=== PATIENT | female | born 1995 | race Caucasian/White ===

== ENCOUNTER 2019-04-19 05:35 | Inpatient (IN) | payer SELFPAY ==
[2019-04-19] VITALS (14 sets, daily range): BP systolic 106–127; BP diastolic 55–79
[~2019-04-19] VITALS: Ht 177.8 cm; Wt 93.4 kg
[2019-04-19] MEDS ORDERED: OXYTOCIN/NORMAL SALINE 500 ML IV ONE (05:52)
[2019-04-19] MEDS ORDERED: D5 LR IV SOLUTION 1,000 ML IV SCH (06:11)
[2019-04-19] MEDS ORDERED: MINERAL OIL CONCENTRATE 99.9% 15 ML UDC TOP PRN (06:15)
[2019-04-19 06:22] LABS: BASOPHILS % (AUTO) 0 % (0-10); EOSINOPHILS # (AUTO) 0.1 10^3/uL (0.0-0.3); EOSINOPHILS % (AUTO) 1 % (0-10); HEMATOCRIT 33 % (35-52); HEMOGLOBIN 10.1 G/DL (11.5-16.0); LYMPHOCYTES # (AUTO) 1.9 X 10^3 (1.0-4.0); LYMPHOCYTES % (AUTO) 16 % (12-44); MEAN CORPUSCULAR HEMOGLOBIN 25 PG (25-34); MEAN CORPUSCULAR HGB CONC 31 G/DL (32-36); MEAN CORPUSCULAR VOLUME 80 FL (80-99); MEAN PLATELET VOLUME 10.6 FL (7.4-10.4); MONOCYTES % (AUTO) 9 % (0-12); NEUTROPHILS # (AUTO) 8.6 X 10^3 (1.8-7.8); NEUTROPHILS % (AUTO) 75 % (42-75); PLATELET COUNT 299 10^3/uL (130-400); RED CELL DISTRIBUTION WIDTH 17.9 % (10.0-14.5); WHITE BLOOD COUNT 11.6 10^3/uL (4.3-11.0)
[2019-04-19] MEDS: OXYTOCIN/NORMAL SALINE 500 ML IV SCH ×2 (06:31→07:25)
[2019-04-19] MEDS ORDERED: HYDROcodone/APAP 5 MG/325 MG (LORTAB) TAB PO PRN (07:00)
[2019-04-19] MEDS ORDERED: TETANUS,DIPTH,PERTUSS P/F (BOOSTRIX) 0.5 ML VIAL IM ONE (07:00)
[2019-04-19] MEDS ORDERED: MEASLES,MUMPS,RUBELLA 1 EA INJ SQ ONE (07:00)
[2019-04-19] MEDS ORDERED: BENZOCAINE/MENTHOL (DERMOPLAST) 56 ML CAN TP PRN (07:00)
[2019-04-19] MEDS ORDERED: WITCH HAZEL(TUCKS) 40 EA JAR TOP PRN (07:00)
--- NOTE | 2019-04-19 07:17 | OB Labor & Delivery Record ---
L&D History Date of Service Date of Service: Apr 19, 2019 History Expected Date of Delivery: Apr 19, 2019 Gestational Age in Weeks: 39 Complications Unsure of the extent of care, patient presented complete and 0 station. Patient has had some care with Dr. Sparks Operative Indications (Cesarea: N/A-Vaginal Delivery Intrapartal Events: None L&D Stage1 Stage One Onset of Labor - Date: Apr 19, 2019 Monitors and Tracing [employer] Variability: Average (6-10) Short Term Variability: Present Rupture of Membranes Spontaneous Ruture of Membrane: Yes Amniotic Membrane Fluid Desc.: Port Wine Vaginal Bleeding Description: Normal Show Progress/Notes Patient without any pain control upon my arrival, requesting to push. Dr. Sparks unable to make it from [facility] L&D Stage2 Stage Two Stage II Date: Apr 19, 2019 Monitors and Tracing Monitor Mode: External Monitor Accelerations: Uniform Monitor Decelerations: Variable [employer] Variability: Moderate (11-25) Short Term Variability: Present Position: Right Occiput Anterior Cord Descript/Complications Cord Vessel Description: 3 Vessels Delivery Type Infant Delivery Method: Spontaneous Vaginal Anterior Shoulder: Right Episiotomy/Perineal Laceration Laceraction(s)/Extensions: Yes Episiotomy Description: Perineal Extension/lac Degree (describe repair) perineal laceration 3-0 vicryl suture used to repair laceration Condition of Delivery 1 minute Comment: 8 5 minute Comment: 8 Notes live female infant, weight pending. Condition of Infant Condition of : Living Exam: No Observed Abnormalities Resuscitation Resuscitation: Oxygen Blowby L&D Stage3 Stage Three Stage III Date: Apr 19, 2019 Pictocin Pitocin Administration Comment: 30 mu wide open at delivery of placenta Placenta Delivery Placenta Delivery: Spontaneous Delivery Summary Summary Estimated blood loss (mL): 350 Attending at delivery: Yony Robertson DO Condition of Delivery Examined: Cervix Examined, Uterus Explored Post Hemorrhage: No Condition of Mother stable Condition of Infant (s) stable YONY ROBERTSON DO Apr 19, 2019 07:17 POS
--- NOTE | 2019-04-19 07:21 | History & Physical-OB ---
OB - Chief Complaint & HPI Date/Time Date of Admission: Date of Admission: Apr 19, 2019 at 05:50 Date seen by a Provider: Apr 19, 2019 Time Seen by a Provider: 06:00 Chief Complaint/History OB-Reason for Admission/Chief: Onset of Labor Hx : 2 Hx Para: 1 Expected Date of Delivery: Apr 19, 2019 Gestational Age in Weeks: 39 Admission Nurse Assessment Rev: Yes Other Patient presented to ER complete and -1 sent to l and d where I was notified to present for eminent delivery as patients provider, Dr. Sparks, was too far out to make it. Allergies and Home Medications Allergies Coded Allergies: No Known Drug Allergies (Unverified , 04/19/19) Patient Home Medication List Home Medication List Reviewed: Yes OB - History Hx of Present Care: No Other Concerns: I am unsure of the extent of patients care as I have no records, however she does claim seeing Dr. Sparks in [facility] Patient Past Medical History n/a OB - Admission Exam Physical Exam HEENT: NCAT Heart: Rhythm Normal Lungs: Clear Abdomen: Gravid Extremities: Normal Reflexes: Normal Cervical Dilatation: 10cm Effacement: 100% Station: 0 Membranes: Ruptured Amniotic Fluid: Other Heart Rate: 130's Accelerations: Accelerations Present Decelerations: Variable Decelerations Short Term Variability: Present Manager Contact Variability: Average (6-25) Contractions on Admission: < 5 Minutes Apart Intensity: Firm Labs Laboratory Tests Test 04/19/19 05:55 Range/Units White Blood Count 11.6 H 4.3-11.0 10^3/uL Red Blood Count 4.08 L 4.35-5.85 10^6/uL Hemoglobin 10.1 L 11.5-16.0 G/DL Hematocrit 33 L 35-52 % Mean Corpuscular Volume 80 80-99 FL Mean Corpuscular Hemoglobin 25 25-34 PG Mean Corpuscular Hemoglobin Concent 31 L 32-36 G/DL Red Cell Distribution Width 17.9 H 10.0-14.5 % Platelet Count 299 130-400 10^3/uL Mean Platelet Volume 10.6 H 7.4-10.4 FL Neutrophils (%) (Auto) 75 42-75 % Lymphocytes (%) (Auto) 16 12-44 % Monocytes (%) (Auto) 9 0-12 % Eosinophils (%) (Auto) 1 0-10 % Basophils (%) (Auto) 0 0-10 % Neutrophils # (Auto) 8.6 H 1.8-7.8 X 10^3 Lymphocytes # (Auto) 1.9 1.0-4.0 X 10^3 Monocytes # (Auto) 1.0 0.0-1.0 X 10^3 Eosinophils # (Auto) 0.1 0.0-0.3 10^3/uL Basophils # (Auto) 0.0 0.0-0.1 10^3/uL OB - Assessment/Plan/Diagnosis Assessment Assessment: active labor Admission Dx 23 yo @ estimate 39 weeks based on patients history alone GBS unknown Port wine stained fluid consistent with suspected chronic abruption Eminent delivery Limited care Admission Status: Inpatient Order (span 2 midnights) Reason for Inpatient Admission: Term labor Limited care Plan Plan: Expectant Management ERIKA ROBERTSON DO Apr 19, 2019 07:21 POS
--- NOTE | 2019-04-19 07:22 | Discharge Inst-Women's Service ---
Discharge Inst-Women's Serv Depart Medication/Instructions New, Converted or Re-Newed RX: RX on Chart Final Diagnosis PPD 1 NVD Problems Reviewed?: Yes Consults/Follow Up Additional Follow Up: Yes Orders/Referrals Dr. Sparks or Gabriela in 6 weeks Activity Activity: Activity as Tolerated Driving Instructions: No Driving for 1 Week NO SMOKING: NO SMOKING Nothing Inside Vagina: No Douching, No [place], No Tampons Diet Discharge Diet: No Restrictions Symptoms to Report to : Bleeding Excessive, Pain Increased, Fever Over 101 Degrees F, Vaginal Bleeding Increase, Questions/Concerns For Any Problems or Questions: Contact Your Physician ERIKA ROBERTSON DO Apr 19, 2019 07:22 POS
--- NOTE | 2019-04-19 07:29 | Progress Note ---
Standard Progress Note Progress Notes/Assess & Plan Date Seen by a Provider: Apr 19, 2019 Time Seen by a Provider: 07:00 Progress/Assessment & Plan Ms. Tucker arrived at the hospital at 9 cm. She was subsequently delivered by Dr. Ochoa without complications When I saw Ms. Tucker she was without complaint, doing well. Assessment: Day #0 Normal Spontaneous Vaginal Delivery ( Plan: Pain management and care. I will discharge her tomorrow as long as she continues to be stable Final Diagnosis Intrauterine at 39 1/7 weeks0--delivered ELIDA DONOVAN DO Apr 19, 2019 07:29 POS
[2019-04-19] MEDS ORDERED: DOCU100C37 PO (07:32)
[2019-04-19] MEDS ORDERED: ACHD5005 PO (07:32)
[2019-04-19] MEDS ORDERED: IBUP-844 PO (07:32)
[2019-04-19] MEDS ORDERED: FERR325T18 PO (07:32)
[2019-04-19] MEDS ORDERED: LACTATED RINGERS 1,000 ML IV ONE (08:00)
[2019-04-19] MEDS ORDERED: METHYLERGONOVINE 0.2 MG/ML (METHERGINE) AMP ONE (08:13)
[2019-04-19] MEDS ORDERED: METHYLERGONOVINE 0.2 MG/ML (METHERGINE) AMP IM ONE (08:15)
[2019-04-19] MEDS: IBUPROFEN 600 MG (MOTRIN) TAB PO SCH ×3 (09:11→22:34)
--- NOTE | 2019-04-19 09:26 | NUR ---
REFER TO LABOR FLOW SHEET.
--- NOTE | 2019-04-19 09:30 | NUR ---
PT IN BED. INITIAL SHIFT ASSESSMENT COMPLETED; SEE INTERVENTION FOR FURTHER. S/O AT THE BEDSIDE.
--- NOTE | 2019-04-19 11:00 | NUR ---
PT JUST FINISHED . DENIES ANY NEEDS AT THIS TIME.
--- NOTE | 2019-04-19 12:20 | NUR ---
PT UP TO THE BATHROOM WITH STANDBY ASSIST. PT STEADY ON HER FEET. S/O AT THE BEDSIDE. PT DENIES ANY FURTHER NEEDS AT THIS TIME.
[2019-04-19] MEDS: PRENATAL VITAMIN 1 EA TAB PO SCH (13:05)
[2019-04-19] MEDS: DOCUSATE SODIUM 100 MG (COLACE) CAP PO SCH ×2 (13:06→22:34)
[2019-04-19] MEDS: FERROUS SULF 325 MG (IRON) TAB PO SCH (13:06)
--- NOTE | 2019-04-19 13:08 | NUR ---
PT SITTING UP ON THE SIDE OF THE BED, LUNCH @ BEDSIDE. MEDS GIVEN PO; SEE EMAR FOR FURTHER. PT VOICES THAT SHE FEELS REALLY GOOD. NO NEEDS VOICED.
[2019-04-19] MEDS ORDERED: CATHETER FLUSH 10 ML SYR IV SCH ×2 (14:00)
[2019-04-20 00:41] VITALS: BP 99/64
[2019-04-20 04:19] VITALS: BP 102/62
[2019-04-20] MEDS: IBUPROFEN 600 MG (MOTRIN) TAB PO SCH ×3 (04:19→16:00)
[2019-04-20 06:48] LABS: BASOPHILS % (AUTO) 0 % (0-10); EOSINOPHILS # (AUTO) 0.1 10^3/uL (0.0-0.3); EOSINOPHILS % (AUTO) 1 % (0-10); HEMATOCRIT 28 % (35-52); HEMOGLOBIN 8.5 G/DL (11.5-16.0); LYMPHOCYTES # (AUTO) 2.3 X 10^3 (1.0-4.0); LYMPHOCYTES % (AUTO) 23 % (12-44); MEAN CORPUSCULAR HEMOGLOBIN 25 PG (25-34); MEAN CORPUSCULAR HGB CONC 31 G/DL (32-36); MEAN CORPUSCULAR VOLUME 81 FL (80-99); MEAN PLATELET VOLUME 10.4 FL (7.4-10.4); MONOCYTES # (AUTO) 0.9 X 10^3 (0.0-1.0); MONOCYTES % (AUTO) 9 % (0-12); NEUTROPHILS # (AUTO) 6.8 X 10^3 (1.8-7.8); NEUTROPHILS % (AUTO) 68 % (42-75); PLATELET COUNT 294 10^3/uL (130-400); RED CELL DISTRIBUTION WIDTH 18.4 % (10.0-14.5)
--- NOTE | 2019-04-20 06:53 | Discharge Summary ---
Diagnosis/Chief Complaint Date of Admission Apr 19, 2019 at 05:50 Date of Discharge April 20, 2019 Discharge Date: Apr 20, 2019 Discharge Time: 08:00 Admission Diagnosis Admission Diagnosis Intrauterine at 39 1/7 weeks Discharge Diagnosis Intrauterine at 39 1/7 weeks--delivered Reason Hospital Visit Onset of labor Discharge Summary Hospital Course Was the Problem List Reviewed?: Yes Hospital Course Ms. Tucker presented to the hospital with the onset of contractions. After her initial assessment it was determined that an imminent delivery was likely. Dr. Ochoa was called and delivered a healthy viable female infant without complications. The remainder of her hospitalization was unremarkable. Her vital signs remained stable throughout her hospitalization. She will be discharged to home with instructions, prescriptions and a follow up appointment. Labs Laboratory Tests 04/19/19 05:55: White Blood Count 11.6H, Red Blood Count 4.08L, Hemoglobin 10.1L, Hematocrit 33L , Mean Corpuscular Hemoglobin Concent 31L, Red Cell Distribution Width 17.9H, Mean Platelet Volume 10.6H, Neutrophils # (Auto) 8.6H 04/20/19 06:24: Procedures None. Discharge Physical Examination Allergies: Coded Allergies: No Known Drug Allergies (Unverified , 04/19/19) Vitals & I&Os Vital Signs Date Time Temp Pulse Resp B/P (MAP) Pulse Ox O2 Delivery O2 Flow Rate FiO2 04/20/19 04:19 36.5 60 18 102/62 (75) 97 Room Air General Appearance: Alert, Oriented X3, Cooperative HEENT: Atraumatic Respiratory: Clear to Auscultation, Normal Air Movement Cardiovascular: Regular Rate, No Murmurs Abdominal: Normal Bowel Sounds, No Tenderness Extremities: No Clubbing, No Cyanosis Skin: No Rashes Neuro: Normal Gait, Normal Speech Discharge Home Medications Reviewed and agree with Discharge Medication list on patient's Discharge Instr uction sheet Instructions to Patient/Family Please see electronic discharge instructions given to patient. Clinical Quality Measures DVT/VTE Risk/Contraindication: RFS Level Per Nursing on Admit: 0=No Risk/No VTE PPX ELIDA DONOVAN DO Apr 20, 2019 06:53 POS
--- NOTE | 2019-04-20 07:00 | NUR ---
DR. DONOVAN HERE TO SEE PT.
[2019-04-20 08:00] VITALS: BP 105/59
--- NOTE | 2019-04-20 08:00 | NUR ---
A.M. ASSESSMENT COMPLETED. VSS. CARING FOR IN ROOM. GOOD INTERACTION NOTED.
--- NOTE | 2019-04-20 08:14 | Postpartum Progress Note ---
Note Note Day # 1 Subjective: Patient is without complaints. Ambulating, voiding. Tolerating a regular diet without nausea or vomiting. Normal lochia. Pain is well controlled with oral pain medications. Objective: Physical Exam: General - Alert and oriented, no apparent distress Abdomen - Soft, appropriately tender to palpation, non-distended, fundus firm at umbilicus Extremities - no edema, negative Shira's bilaterally Assessment: PPD 1 NVD Acute blood loss anemia Plan: Routine care. Encourage breast feeding. Encourage ambulation. Ferrous sulfate supplementation. Plan for discharge today Vitals - Labs Vital Signs - I&O Vital Signs Date Time Temp Pulse Resp B/P (MAP) Pulse Ox O2 Delivery O2 Flow Rate FiO2 04/20/19 04:19 36.5 60 18 102/62 (75) 97 Room Air 04/20/19 00:41 37.0 69 18 99/64 (76) 97 Room Air 04/19/19 20:00 36.6 71 18 117/65 (82) 98 Room Air 04/19/19 16:10 37.0 67 18 111/63 (79) 99 Room Air 04/19/19 12:35 37.1 83 16 107/55 (72) 97 Room Air 04/19/19 09:05 38.1 60 18 127/79 (95) Room Air 04/19/19 08:50 67 18 126/79 (95) Room Air 04/19/19 08:35 64 18 123/72 (89) Room Air 04/19/19 08:20 70 18 110/66 (81) Room Air Labs Laboratory Tests 04/20/19 06:24: White Blood Count 10.0, Red Blood Count 3.45L, Hemoglobin 8.5L, Hematocrit 28L, Mean Corpuscular Volume 81, Mean Corpuscular Hemoglobin 25, Mean Corpuscular Hemoglobin Concent 31L, Red Cell Distribution Width 18.4H, Platelet Count 294, Mean Platelet Volume 10.4, Neutrophils (%) (Auto) 68, Lymphocytes (%) (Auto) 23, Monocytes (%) (Auto) 9, Eosinophils (%) (Auto) 1, Basophils (%) (Auto) 0, Neutrophils # (Auto) 6.8, Lymphocytes # (Auto) 2.3, Monocytes # (Auto) 0.9, Eosinophils # (Auto) 0.1, Basophils # (Auto) 0.0 ERIKA ROBERTSON DO Apr 20, 2019 08:14 POS
--- NOTE | 2019-04-20 08:30 | NUR ---
PT DECLINED FLU AND TDAP VACCINES. PT DECLINED SHOWER.
[2019-04-20] MEDS: FERROUS SULF 325 MG (IRON) TAB PO SCH (10:02)
[2019-04-20] MEDS: PRENATAL VITAMIN 1 EA TAB PO SCH (10:02)
[2019-04-20] MEDS: DOCUSATE SODIUM 100 MG (COLACE) CAP PO SCH (10:03)
--- NOTE | 2019-04-20 10:30 | NUR ---
AMBULATED IN THE HALLWAY WITH S.O. AND INFANT. MOVING WELL.
--- NOTE | 2019-04-20 12:30 | NUR ---
CONTINUES TO CARE FOR IN ROOM. WITHOUT PROBLEMS. SUPPLIES GIVEN FOR [employer].
[2019-04-20 14:00] VITALS: BP 96/56
--- NOTE | 2019-04-20 14:00 | NUR ---
VSS. DENIES ANY PAIN. DENIES ANY WANTS OR NEEDS. CONTINUES TO CARE FOR INFANT IN ROOM.
--- NOTE | 2019-04-20 16:00 | NUR ---
STATES WELL. CONTINUES TO CARE FOR IN ROOM.
--- NOTE | 2019-04-20 18:45 | NUR ---
DISCHARGE INSTRUCTIONS REVIEWED WITH COPY TO PT. STATES UNDERSTANDING OF ALL INSTRUCTIONS AND NEED TO F/U SCHEDULED AND NEEDED. RXS GIVEN BUT MAY NOT GET THEM FILLED PER PT AND S.O.
[2019-04-20 19:00] VITALS: BP 96/56
--- NOTE | 2019-04-20 19:00 | NUR ---
DISMISSED FROM WS IN STABLE CONDITION. PT WILL REMAIN IN ROOM A BOARDER MOM R/T HAVING TO STAY.
--- NOTE | 2019-04-22 10:21 | Physician Query Clarification ---
PQ-Further Specificity Admission/Discharge Admission Date: Apr 19, 2019 at 05:50 Discharge Date: Apr 20, 2019 at 19:00 The medical record reflects the following clinical scenario: History/Risk Factors: , Decelerations Clinical Findings: perineal laceration Treatment: repair perineal laceration Question: Can you further specify the degree of the perineal laceration per the clinical indicators above? Please document a response in the Progress Notes or Discharge Summary. 1. 1st degree perineal laceration 2. 2nd degree perineal laceration 3. Other, with explanation of the clinical findings. 4. Clinically undetermined, no explanation for the clinical findings. PHYSICIAN RESPONSE Can you specify per above: 2 Explanation/Clinical Findings 2nd degree Please remember a lack of response to the above will prompt a phone page by CDI/Coding staff. In responding to this query, please exercise your independent professional judgment. The purpose of this communication is to more accurately reflect the complexity of your patients condition. The fact that a question is asked does not imply that any particular answer is desired or expected. Thank you for your timely response to this clarification. Requestors name: Rasheeda THIS PHYSICIAN QUERY FORM IS A PERMANENT PART OF THE MEDICAL RECORD RASHEEDA ARGUETA Apr 22, 2019 10:21 POSERIKA ROBERTSON DO Apr 22, 2019 12:48 POS
--- NOTE | 2019-04-22 10:37 | Physician Query Clarification ---
PQ-Further Specificity Admission/Discharge Admission Date: Apr 19, 2019 at 05:50 Discharge Date: Apr 20, 2019 at 19:00 The medical record reflects the following clinical scenario: History/Risk Factors: , decelerations Clinical Findings: Port wine stained fluid consistent with suspected chronic abruption Treatment: , repair perineal laceration Question: Can you confirm whether or not patient had a chronic abruption after study? No further mention of it in the record. per the clinical indicators above? Please document a response in the Progress Notes or Discharge Summary. 1. Yes, patient had chronic abruption 2. No, chronic abruption ruled out. 3. Other, with explanation of the clinical findings. 4. Clinically undetermined, no explanation for the clinical findings. PHYSICIAN RESPONSE Can you specify per above: 2 Explanation/Clinical Findings 2nd degree Please remember a lack of response to the above will prompt a phone page by CDI/Coding staff. In responding to this query, please exercise your independent professional judgment. The purpose of this communication is to more accurately reflect the complexity of your patients condition. The fact that a question is asked does not imply that any particular answer is desired or expected. Thank you for your timely response to this clarification. Requestors name: [ ] Phone # [ ] THIS PHYSICIAN QUERY FORM IS A PERMANENT PART OF THE MEDICAL RECORD RASHEEDA ARGUETA Apr 22, 2019 10:37 ERIKA HARRISON DO Apr 22, 2019 12:48 POS
== END 2019-04-20 19:00 | disposition home or self-care (01) | DRG 806 ==
LOC: LDRP 05:35 → WSo 05:35 → LDRP 05:50
PROVIDERS: ADMIT Obstetrics & Gynecology; ATTEND Obstetrics & Gynecology
PROC: 10E0XZZ Delivery of Products of Conception, External Approach (ICD-10-PCS; principal; 2019-04-19)
PROC: 0KQM0ZZ Repair Perineum Muscle, Open Approach (ICD-10-PCS; 2019-04-19)
DX: O76 Abnormality in fetal heart rate and rhythm complicating labor and delivery (principal); O70.1 Second degree perineal laceration during delivery; O90.81 Anemia of the puerperium; D62 Acute posthemorrhagic anemia; Z37.0 Single live birth; Z3A.39 39 weeks gestation of pregnancy
CPT/HCPCS: 36415; 85025; 86850; 86900; 86901; 99212

== ENCOUNTER → 2020-09-21 | Outpatient (CLI) | payer SELFPAY ==
[~2020-09-21] MED LIST: ACHD5005 PO; DOCU100C37 PO; FERR325T18 PO; IBUP-844 PO
--- NOTE | 2020-09-21 16:36 | Diagnostic Imaging Report ---
INDICATION: patient, survey. TECHNIQUE: Multiple real-time grayscale images were obtained over the gravid uterus. COMPARISON: None. FINDINGS: A single live intrauterine fetus is seen measuring 32 weeks 4 days in size by composite measurements. The fetus is in breech presentation. Amniotic fluid index was 8.18 cm. Placenta is posterior and shows no evidence of previa. heart rate is 130 BPM. There is no subchorionic bleed. Maternal adnexa could not be visualized. survey demonstrated normal-appearing kidneys and bladder and stomach. Normal-appearing intracranial ventricles are seen. Four-chamber heart view was normal. Three-vessel cord and cord insertion appear normal. Views of the spine were unremarkable. Biometrical measurements are as follows: Biparietal 7.82 cm, age 31 weeks 3 days. Head circumference 29.64 cm, age 32 weeks 6 days. Abdominal circumference 28.96 cm, age 33 weeks 0 days. Femur length 6.35 cm, age 32 weeks 6 days. Sonographic estimate age: 32 weeks 4 days. Sonographic estimated date of delivery: 11/12/2020. Estimated Weight: 2044 gm (+/- 299 gm). LMP percentile: 46%. heart rate: 130 beats per minute. number: 1 of 1. IMPRESSION: Single live intrauterine fetus measuring 32 weeks 4 days in size. There were no detectable abnormalities. Dictated by: Dictated on workstation # [id number]
== END ==
LOC: RAD FS 11:42
PROVIDERS: ATTEND Obstetrics & Gynecology
DX: O09.33 Supervision of pregnancy with insufficient antenatal care, third trimester (principal); Z3A.32 32 weeks gestation of pregnancy
CPT/HCPCS: 76805

== ENCOUNTER 2020-10-14 14:39 | Inpatient (IN) | payer SELFPAY ==
[~2020-10-14] VITALS: Ht 177.8 cm; Wt 93.5 kg
[2020-10-14] MEDS ORDERED: AMPICILLIN FOR IV USE 2,000 MG in WATER (STERILE) FOR INJECTION 14.8 ML IV ONE (14:52)
[2020-10-14 15:07] VITALS: BP 115/75
[2020-10-14] MEDS: D5 LR IV SOLUTION 1,000 ML IV SCH ×2 (15:31→23:09)
[2020-10-14] MEDS ORDERED: FERR-84 PO (15:34)
[2020-10-14] MEDS ORDERED: GLYB1TAB34 PO (15:34)
[2020-10-14 15:44] LABS: BASOPHILS % (AUTO) 0 % (0-10); EOSINOPHILS # (AUTO) 0.1 10^3/uL (0.0-0.3); EOSINOPHILS % (AUTO) 1 % (0-10); HEMATOCRIT 33 % (35-52); HEMOGLOBIN 10.6 g/dL (11.5-16.0); LYMPHOCYTES # (AUTO) 2.1 10^3/uL (1.0-4.0); LYMPHOCYTES % (AUTO) 25 % (12-44); MEAN CORPUSCULAR HEMOGLOBIN 27 pg (25-34); MEAN CORPUSCULAR HGB CONC 32 g/dL (32-36); MEAN CORPUSCULAR VOLUME 85 fL (80-99); MEAN PLATELET VOLUME 10.1 fL (9.0-12.2); MONOCYTES # (AUTO) 0.6 10^3/uL (0.0-1.0); MONOCYTES % (AUTO) 8 % (0-12); NEUTROPHILS # (AUTO) 5.6 10^3/uL (1.8-7.8); NEUTROPHILS % (AUTO) 66 % (42-75); PLATELET COUNT 236 10^3/uL (130-400); WHITE BLOOD COUNT 8.6 10^3/uL (4.3-11.0)
[2020-10-14] MEDS: AMPICILLIN FOR IV USE 1,000 MG in WATER (STERILE) FOR INJECTION 7.4 ML IV SCH ×2 (19:26→23:09)
[2020-10-14 19:38] VITALS: BP 121/70
[2020-10-14] MEDS ORDERED: CATHETER FLUSH 10 ML SYR IV SCH (22:00)
[2020-10-14 23:10] VITALS: BP 111/65
[2020-10-15] VITALS (62 sets, daily range): BP systolic 93–135; BP diastolic 51–80
[2020-10-15] MEDS: AMPICILLIN FOR IV USE 1,000 MG in WATER (STERILE) FOR INJECTION 7.4 ML IV SCH ×5 (03:15→19:29)
[2020-10-15] MEDS ORDERED: OXYTOCIN PRE-MIX DRIP 500 ML IV SCH (08:30)
[2020-10-15] MEDS: D5 LR IV SOLUTION 1,000 ML IV SCH ×2 (08:49→18:12)
--- NOTE | 2020-10-15 10:16 | History & Physical-OB ---
OB - Chief Complaint & HPI Date/Time Date of Admission: Date of Admission: October 14, 2020 at 14:39 Date seen by a Provider: October 14, 2020 Time Seen by a Provider: 16:30 Chief Complaint/History OB-Reason for Admission/Chief: Induction of Labor Hx : 3 Hx Para: 2 Expected Date of Delivery: Nov 12, 2020 Gestational Age in Weeks: 35 Gestational Age in Days: 6 Other reason for admission: Patient sent over from office for monitoring and delivery due to anhydramnios on US done for monitoring of GDMA2 Admission Nurse Assessment Rev: Yes History of Labs A pos Antibody neg GBS unknown HIV NR HBsAg NR RNI Allergies and Home Medications Allergies Coded Allergies: No Known Drug Allergies (Unverified , 04/19/19) Home Medications Ferrous Sulfate 325 Mg Tablet, 325 MG PO DAILY, (Reported) Last Action: New Order Glyburide/Metformin HCl 1 Each Tablet, 1 EACH PO HS, (Reported) Last Action: New Order Patient Home Medication List Home Medication List Reviewed: Yes OB - History Hx of Present Care: Yes (limited, late entry into care) Ultrasounds: Normal mid trimester US Obstetrical Complications: Gestational Diabetes, Other (anhydramnios) Medical Complications: None Patient Past Medical History n/a Immunizations Hepatitis A: No Hepatitis B: No OB - Admission Exam Physical Exam Vitals: Vital Signs 10/15/20 03:19 Temp 36.6 Pulse 64 Resp 18 B/P (MAP) 123/65 (84) O2 Delivery Room Air HEENT: NCAT Heart: Rhythm Normal Lungs: Clear Abdomen: Gravid Extremities: Normal Reflexes: Normal Cervical Dilatation: 3cm Effacement: 75% Station: -1 Membranes: Intact Heart Rate: 130's Accelerations: Accelerations Present Decelerations: No Decelerations Short Term Variability: Present Detention Variability: Average (6-25) Contractions on Admission: 6-10 Minutes Apart Intensity: Mild Labs Laboratory Tests Test 10/14/20 15:25 10/14/20 16:51 10/14/20 21:08 10/15/20 06:14 Range/Units White Blood Count 8.6 4.3-11.0 10^3/uL Red Blood Count 3.90 3.80-5.11 10^6/uL Hemoglobin 10.6 L 11.5-16.0 g/dL Hematocrit 33 L 35-52 % Mean Corpuscular Volume 85 80-99 fL Mean Corpuscular Hemoglobin 27 25-34 pg Mean Corpuscular Hemoglobin Concent 32 32-36 g/dL Red Cell Distribution Width 14.5 10.0-14.5 % Platelet Count 236 130-400 10^3/uL Mean Platelet Volume 10.1 9.0-12.2 fL Immature Granulocyte % (Auto) 1 % Neutrophils (%) (Auto) 66 42-75 % Lymphocytes (%) (Auto) 25 12-44 % Monocytes (%) (Auto) 8 0-12 % Eosinophils (%) (Auto) 1 0-10 % Basophils (%) (Auto) 0 0-10 % Neutrophils # (Auto) 5.6 1.8-7.8 10^3/uL Lymphocytes # (Auto) 2.1 1.0-4.0 10^3/uL Monocytes # (Auto) 0.6 0.0-1.0 10^3/uL Eosinophils # (Auto) 0.1 0.0-0.3 10^3/uL Basophils # (Auto) 0.0 0.0-0.1 10^3/uL Immature Granulocyte # (Auto) 0.1 0.0-0.1 10^3/uL Glucometer 119 H 130 H 103 70-110 MG/DL OB - Assessment/Plan/Diagnosis Assessment Assessment: induction of labor Admission Dx 25 yo @ 36 weeks today Anhydramnios- suspected PPROM, however negative nitrazine GDMA 2- on glyburide GBS unknown Admission Status: Inpatient Order (span 2 midnights) Reason for Inpatient Admission: IOL at 36 week Anhydramnios Plan Plan: Induction Induction Method: per Pitocin Protocol Other Plan Starting on GBS prophylaxis due to delivery and unknown GBS status. ERIKA ROBERTSON DO October 15, 2020 10:16
[2020-10-15] MEDS ORDERED: LIDOCAINE/EPI 2% 1:200,00 (XYLOCAINE) 20 ML VIAL ONE (21:23)
--- NOTE | 2020-10-15 22:36 | OB Labor & Delivery Record ---
L&D History Date of Service Date of Service: October 15, 2020 History Expected Date of Delivery: Nov 12, 2020 Gestational Age in Weeks: 36 Hx : 3 Hx Para: 2 Complications Events: Routine care Operative Indications (Cesarea: N/A-Vaginal Delivery Intrapartal Events: None L&D Stage1 Stage One Onset of Labor - Date: October 15, 2020 Monitors and Tracing Monitor Mode: External Heart Rate: 140 Station: -2 Short Term Variability: Present Presentation: Vertex Vital Signs VS - Last 72 Hours, by Label 10/14/20 10/14/20 10/14/20 10/14/20 15:07 15:07 19:38 23:10 Temp 37.0 37.0 37.2 36.1 Pulse 95 95 85 81 Resp 18 18 18 18 B/P (MAP) 115/75 (88) 121/70 (87) 111/65 (80) Pulse Ox 98 98 O2 Delivery Room Air Room Air Room Air Room Air 10/15/20 10/15/20 10/15/20 10/15/20 03:19 07:25 08:50 09:07 Temp 36.6 37.3 Pulse 64 88 84 90 Resp 18 18 18 18 B/P (MAP) 123/65 (84) 118/73 (88) 97/55 (69) 112/74 (87) O2 Delivery Room Air Room Air Room Air Room Air 10/15/20 10/15/20 10/15/20 10/15/20 09:22 09:35 09:50 10:10 Pulse 85 78 86 81 Resp 18 18 18 18 B/P (MAP) 110/65 (80) 110/62 (78) 109/67 (81) 115/63 (80) O2 Delivery Room Air Room Air Room Air Room Air 10/15/20 10/15/20 10/15/20 10/15/20 10:20 10:38 10:50 11:05 Pulse 79 80 80 72 Resp 18 18 18 18 B/P (MAP) 112/59 (76) 115/61 (79) 114/67 (83) 122/65 (84) O2 Delivery Room Air Room Air Room Air Room Air 10/15/20 10/15/20 10/15/20 10/15/20 11:20 11:35 11:50 12:05 Pulse 81 76 69 73 Resp 18 18 18 18 B/P (MAP) 119/63 (81) 111/68 (82) 109/64 (79) 116/70 (85) O2 Delivery Room Air Room Air Room Air Room Air 10/15/20 10/15/20 10/15/20 10/15/20 12:20 12:35 12:50 13:05 Temp 37.6 Pulse 75 75 85 78 Resp 18 18 18 18 B/P (MAP) 111/64 (80) 118/67 (84) 109/60 (76) 102/58 (73) O2 Delivery Room Air Room Air Room Air Room Air 10/15/20 10/15/20 10/15/20 10/15/20 13:20 13:35 13:50 14:05 Pulse 81 88 88 74 Resp 18 18 18 18 B/P (MAP) 93/55 (68) 133/72 (92) 133/72 (92) 100/57 (71) O2 Delivery Room Air Room Air Room Air Room Air 10/15/20 10/15/20 10/15/20 10/15/20 14:20 14:35 14:50 15:05 Pulse 71 71 100 68 Resp 18 18 18 18 B/P (MAP) 116/66 (83) 105/64 (78) 108/68 (81) 101/54 (70) O2 Delivery Room Air Room Air Room Air Room Air 10/15/20 10/15/20 10/15/20 10/15/20 15:20 15:35 15:50 16:05 Temp 37.2 Pulse 70 73 81 85 Resp 18 18 18 18 B/P (MAP) 94/51 (65) 112/57 (75) 104/55 (71) 104/57 (73) O2 Delivery Room Air Room Air Room Air Room Air 10/15/20 10/15/20 10/15/20 10/15/20 16:20 16:35 16:50 17:05 Pulse 77 100 100 100 Resp 18 18 18 18 B/P (MAP) 105/57 (73) 100/55 (70) 130/79 (96) 110/71 (84) O2 Delivery Room Air Room Air Room Air Room Air 10/15/20 10/15/20 10/15/20 10/15/20 17:20 17:35 17:50 18:05 Pulse 70 88 78 85 Resp 18 18 18 18 B/P (MAP) 114/61 (78) 116/73 (87) 118/68 (85) 115/66 (82) O2 Delivery Room Air Room Air Room Air Room Air 10/15/20 10/15/20 10/15/20 10/15/20 18:20 18:35 18:50 19:15 Pulse 90 81 73 87 Resp 18 18 18 18 B/P (MAP) 119/73 (88) 112/65 (81) 115/71 (86) 123/70 (87) O2 Delivery Room Air Room Air Room Air Room Air 10/15/20 10/15/20 10/15/20 10/15/20 19:30 19:45 20:00 20:15 Temp 36.7 Pulse 86 74 87 95 Resp 18 18 18 18 B/P (MAP) 118/71 (87) 126/78 (94) 119/74 (89) 123/77 (92) O2 Delivery Room Air Room Air Room Air Room Air 10/15/20 10/15/20 10/15/20 10/15/20 20:30 20:45 21:00 21:15 Pulse 87 87 89 80 Resp 18 18 18 18 B/P (MAP) 125/74 (91) 121/76 (91) 114/72 (86) 117/71 (86) O2 Delivery Room Air Room Air Room Air Room Air Rupture of Membranes Spontaneous Ruture of Membrane: Yes Amniotic Membrane Rupture Time: 1645 Amniotic Membrane Fluid Desc.: Clear Vaginal Bleeding Description: Normal Show Progress/Notes Patient admitted for IOL for anhydramnios, and GDMA2. Started on Pitocin this AM and given GBS prophylaxis. She progressed with pitocin augmentation to complete and +2 station. L&D Stage2 Stage Two Stage II Date: October 15, 2020 Monitors and Tracing Monitor Mode: External Heart Rate: 140 Position: Right Occiput Anterior Presentation: Vertex Cord Descript/Complications Cord Vessel Description: 3 Vessels Delivery Type Infant Delivery Method: Spontaneous Vaginal Anterior Shoulder: Left Episiotomy/Perineal Laceration Laceraction(s)/Extensions: Yes Episiotomy Description: Perineal Extension/lac, 1st degree Degree (describe repair) 1st degree perineal laceration repaired using 3-0 rapide vicryl suture in usual fashion. Condition of Infant Delivery 1 minute Comment: 8 5 minute Comment: 9 Notes Live female weight 6lbs 8 oz Condition of Infant Condition of : Living Exam: No Observed Abnormalities Resuscitation Resuscitation: N/A - Spontaneous Resp L&D Stage3 Stage Three Stage III Date: October 15, 2020 Pictocin Pitocin Administration mu/min: 14 Pitocin ml/hr: 14 Pitocin Administration Comment: 30 mu wide open at delivery of placenta Placenta Delivery Placenta Delivery: Spontaneous Delivery Summary Summary Estimated blood loss (mL): 250 Attending at delivery: Erika Robertson DO Condition of Delivery Examined: Cervix Examined, Uterus Explored Post Hemorrhage: No Condition of Mother stable Condition of (s) stable ERIKA ROBERTSON DO October 15, 2020 22:36
--- NOTE | 2020-10-15 22:39 | Discharge Inst-Women's Service ---
Discharge Inst-Women's Serv Depart Medication/Instructions New, Converted or Re-Newed RX: RX on Chart Final Diagnosis PPD 2 NVD Problems Reviewed?: Yes Consults/Follow Up Additional Follow Up: Yes Orders/Referrals Dr. Robertson in 6 weeks Activity Activity: Activity as Tolerated Driving Instructions: No Driving for 1 Week NO SMOKING: NO SMOKING Nothing Inside Vagina: No Douching, No [place], No Tampons Diet Discharge Diet: No Restrictions Symptoms to Report to : Bleeding Excessive, Pain Increased, Fever Over 101 Degrees F, Vaginal Bleeding Increase, Questions/Concerns For Any Problems or Questions: Contact Your Physician ERIKA ROBERTSON DO October 15, 2020 22:39
[2020-10-15] MEDS ORDERED: DCS100C PO (22:40)
[2020-10-15] MEDS ORDERED: ACHD5005 PO (22:40)
[2020-10-15] MEDS ORDERED: IBUP-844 PO (22:40)
[2020-10-15] MEDS ORDERED: BENZ78AE5 TP (22:40)
[2020-10-15] MEDS: OXYTOCIN PRE-MIX DRIP 500 ML IV SCH ×2 (22:44→23:19)
[2020-10-15] MEDS ORDERED: HYDROcodone/APAP 5 MG/325 MG (LORTAB) TAB PO PRN (22:45)
[2020-10-15] MEDS ORDERED: WITCH HAZEL(TUCKS) 40 EA JAR TOP PRN (22:45)
[2020-10-15] MEDS ORDERED: BENZOCAINE/MENTHOL (DERMOPLAST) 56 ML CAN TP PRN (22:45)
[2020-10-15] MEDS ORDERED: DIBUCAINE 1% OINTMENT 30 GM TUBE TOP PRN (22:45)
[2020-10-15] MEDS ORDERED: TETANUS,DIPTH,PERTUSS P/F (BOOSTRIX) 0.5 ML VIAL IM ONE (22:45)
[2020-10-15] MEDS ORDERED: MEASLES,MUMPS,RUBELLA 1 EA INJ SQ ONE (22:45)
[2020-10-16] MEDS: IBUPROFEN 600 MG (MOTRIN) TAB PO SCH ×4 (00:19→21:05)
[2020-10-16] MEDS ORDERED: glyBURIDE 2.5 MG (MICRONASE) TAB PO ONE (01:00)
[2020-10-16 03:27] VITALS: BP 111/65
[2020-10-16] MEDS ORDERED: CATHETER FLUSH 10 ML SYR IV SCH (06:00)
[2020-10-16 06:02] LABS: BASOPHILS % (AUTO) 0 % (0-10); EOSINOPHILS % (AUTO) 0 % (0-10); HEMATOCRIT 32 % (35-52); HEMOGLOBIN 10.1 g/dL (11.5-16.0); LYMPHOCYTES # (AUTO) 1.8 10^3/uL (1.0-4.0); LYMPHOCYTES % (AUTO) 19 % (12-44); MEAN CORPUSCULAR HEMOGLOBIN 27 pg (25-34); MEAN CORPUSCULAR HGB CONC 31 g/dL (32-36); MEAN CORPUSCULAR VOLUME 87 fL (80-99); MEAN PLATELET VOLUME 10.2 fL (9.0-12.2); MONOCYTES # (AUTO) 0.9 10^3/uL (0.0-1.0); MONOCYTES % (AUTO) 9 % (0-12); NEUTROPHILS # (AUTO) 6.9 10^3/uL (1.8-7.8); NEUTROPHILS % (AUTO) 72 % (42-75); PLATELET COUNT 249 10^3/uL (130-400); WHITE BLOOD COUNT 9.6 10^3/uL (4.3-11.0)
[2020-10-16] MEDS ORDERED: PRENATAL VITAMIN 1 EA TAB PO SCH (07:00)
--- NOTE | 2020-10-16 07:11 | Postpartum Progress Note ---
Note Note Day # 1 Subjective: Patient is without complaints. Ambulating, voiding. Tolerating a regular diet without nausea or vomiting. Normal lochia. Pain is well controlled with oral pain medications. Objective: Physical Exam: General - Alert and oriented, no apparent distress Abdomen - Soft, appropriately tender to palpation, non-distended, fundus firm at umbilicus Extremities - no edema, negative Shira's bilaterally Assessment: PPD 1 NVD delivery for induction due to anhydramnios GDMA-2 will follow BS PP and adjust accordingly.- IVF were running D5LR, switched to NS. Plan: Routine care. Encourage breast feeding. Encourage ambulation. Ferrous sulfate supplementation. Plan for discharge tomorrow Vitals - Labs Vital Signs - I&O Vital Signs Date Time Temp Pulse Resp B/P (MAP) Pulse Ox O2 Delivery O2 Flow Rate FiO2 10/16/20 03:27 36.7 64 18 111/65 (80) 99 Room Air 10/15/20 23:47 78 18 118/63 (81) 10/15/20 23:32 73 18 118/72 (87) 10/15/20 23:17 73 18 120/74 (89) 10/15/20 23:02 85 18 109/75 (86) 10/15/20 22:32 37.1 94 18 117/64 (81) 10/15/20 22:30 90 18 135/79 (97) 10/15/20 22:15 100 18 121/71 (88) Room Air 10/15/20 22:00 102 18 130/80 (97) Room Air 10/15/20 21:45 36.8 88 18 127/75 (92) Room Air 10/15/20 21:30 85 18 122/69 (86) Room Air 10/15/20 21:15 80 18 117/71 (86) Room Air 10/15/20 21:00 89 18 114/72 (86) Room Air 10/15/20 20:45 87 18 121/76 (91) Room Air 10/15/20 20:30 87 18 125/74 (91) Room Air 10/15/20 20:15 95 18 123/77 (92) Room Air 10/15/20 20:00 87 18 119/74 (89) Room Air 10/15/20 19:45 74 18 126/78 (94) Room Air 10/15/20 19:30 36.7 86 18 118/71 (87) Room Air 10/15/20 19:15 87 18 123/70 (87) Room Air 10/15/20 18:50 73 18 115/71 (86) Room Air 10/15/20 18:35 81 18 112/65 (81) Room Air 10/15/20 18:20 90 18 119/73 (88) Room Air 10/15/20 18:05 85 18 115/66 (82) Room Air 10/15/20 17:50 78 18 118/68 (85) Room Air 10/15/20 17:35 88 18 116/73 (87) Room Air 10/15/20 17:20 70 18 114/61 (78) Room Air 10/15/20 17:05 100 18 110/71 (84) Room Air 10/15/20 16:50 100 18 130/79 (96) Room Air 10/15/20 16:35 100 18 100/55 (70) Room Air 10/15/20 16:20 77 18 105/57 (73) Room Air 10/15/20 16:05 85 18 104/57 (73) Room Air 10/15/20 15:50 81 18 104/55 (71) Room Air 10/15/20 15:35 37.2 73 18 112/57 (75) Room Air 10/15/20 15:20 70 18 94/51 (65) Room Air 10/15/20 15:05 68 18 101/54 (70) Room Air 10/15/20 14:50 100 18 108/68 (81) Room Air 10/15/20 14:35 71 18 105/64 (78) Room Air 10/15/20 14:20 71 18 116/66 (83) Room Air 10/15/20 14:05 74 18 100/57 (71) Room Air 10/15/20 13:50 88 18 133/72 (92) Room Air 10/15/20 13:35 88 18 133/72 (92) Room Air 10/15/20 13:20 81 18 93/55 (68) Room Air 10/15/20 13:05 78 18 102/58 (73) Room Air 10/15/20 12:50 85 18 109/60 (76) Room Air 10/15/20 12:35 75 18 118/67 (84) Room Air 10/15/20 12:20 37.6 75 18 111/64 (80) Room Air 10/15/20 12:05 73 18 116/70 (85) Room Air 10/15/20 11:50 69 18 109/64 (79) Room Air 10/15/20 11:35 76 18 111/68 (82) Room Air 10/15/20 11:20 81 18 119/63 (81) Room Air 10/15/20 11:05 72 18 122/65 (84) Room Air 10/15/20 10:50 80 18 114/67 (83) Room Air 10/15/20 10:38 80 18 115/61 (79) Room Air 10/15/20 10:20 79 18 112/59 (76) Room Air 10/15/20 10:10 81 18 115/63 (80) Room Air 10/15/20 09:50 86 18 109/67 (81) Room Air 10/15/20 09:35 78 18 110/62 (78) Room Air 10/15/20 09:22 85 18 110/65 (80) Room Air 10/15/20 09:07 90 18 112/74 (87) Room Air 10/15/20 08:50 84 18 97/55 (69) Room Air 10/15/20 07:25 37.3 88 18 118/73 (88) Room Air Labs Laboratory Tests 10/16/20 00:43: Glucometer 193H 10/16/20 05:40: White Blood Count 9.6, Red Blood Count 3.73L, Hemoglobin 10.1L, Hematocrit 32L, Mean Corpuscular Volume 87, Mean Corpuscular Hemoglobin 27, Mean Corpuscular Hemoglobin Concent 31L, Red Cell Distribution Width 14.5, Platelet Count 249, Mean Platelet Volume 10.2, Immature Granulocyte % (Auto) 1, Neutrophils (%) (Auto) 72, Lymphocytes (%) (Auto) 19, Monocytes (%) (Auto) 9, Eosinophils (%) (Auto) 0, Basophils (%) (Auto) 0, Neutrophils # (Auto) 6.9, Lymphocytes # (Auto) 1.8, Monocytes # (Auto) 0.9, Eosinophils # (Auto) 0.0, Basophils # (Auto) 0.0, Immature Granulocyte # (Auto) 0.1 10/16/20 06:11: Glucometer 52*L 10/16/20 06:36: Glucometer 85 ERIKA ROBERTSON DO October 16, 2020 07:11
[2020-10-16 08:45] VITALS: BP 105/58
[2020-10-16] MEDS: DOCUSATE SODIUM 100 MG (COLACE) CAP PO SCH ×2 (15:16→20:17)
[2020-10-16 15:17] VITALS: BP 124/79
[2020-10-16 20:20] VITALS: BP 108/57
[2020-10-17] MEDS: IBUPROFEN 600 MG (MOTRIN) TAB PO SCH ×3 (02:56→14:38)
[2020-10-17 02:57] VITALS: BP 97/60
[2020-10-17] MEDS: DOCUSATE SODIUM 100 MG (COLACE) CAP PO SCH (08:26)
[2020-10-17 09:55] VITALS: BP 105/64
--- NOTE | 2020-10-17 10:25 | Postpartum Progress Note ---
Note Note Day # 2 Subjective: Patient is without complaints. Ambulating, voiding. Tolerating a regular diet without nausea or vomiting. Normal lochia. Pain is well controlled with oral pain medications. Objective: Physical Exam: General - Alert and oriented, no apparent distress Abdomen - Soft, appropriately tender to palpation, non-distended, fundus firm at umbilicus Extremities - no edema, negative Shira's bilaterally Assessment: PPD2 NVD Plan: Routine care. Encourage breast feeding. Encourage ambulation. Ferrous sulfate supplementation. Plan for discharge today Vitals - Labs Vital Signs - I&O Vital Signs Date Time Temp Pulse Resp B/P (MAP) Pulse Ox O2 Delivery O2 Flow Rate FiO2 10/17/20 02:57 36.6 65 16 97/60 (72) 98 Room Air 10/16/20 20:20 36.9 77 18 108/57 (74) 99 Room Air 10/16/20 15:17 37.4 65 18 124/79 (94) Room Air Labs Laboratory Tests 10/16/20 15:14: Glucometer 114H 10/16/20 20:22: Glucometer 111H ERIKA ROBERTSON DO October 17, 2020 10:25
== END 2020-10-17 14:50 | disposition home or self-care (01) | DRG 807 ==
LOC: LDRP 14:39
PROVIDERS: ADMIT Obstetrics & Gynecology; ATTEND Obstetrics & Gynecology
PROC: 10E0XZZ Delivery of Products of Conception, External Approach (ICD-10-PCS; principal; 2020-10-15)
PROC: 0HQ9XZZ Repair Perineum Skin, External Approach (ICD-10-PCS; 2020-10-15)
DX: O60.14X0 Preterm labor third trimester with preterm delivery third trimester, not applicable or unspecified (principal); Z37.0 Single live birth; Z3A.36 36 weeks gestation of pregnancy; O24.429 Gestational diabetes mellitus in childbirth, unspecified control; O99.284 Endocrine, nutritional and metabolic diseases complicating childbirth; E86.0 Dehydration
CPT/HCPCS: 36415; 82947; 85025; 86850; 86900; 86901

== ENCOUNTER → 2022-02-09 | Outpatient (CLI) | payer SELFPAY ==
[~2022-02-09] MED LIST changes: +BENZ78AE5 TP; +DOCU-239 PO; +FERR-84 PO; +GLYB1TAB34 PO
--- NOTE | 2022-02-09 13:06 | Diagnostic Imaging Report ---
INDICATION: Anatomy survey. Late care. TECHNIQUE: Multiple real-time grayscale images were obtained over the gravid uterus. COMPARISON: None FINDINGS: A single live intrauterine gestation is present in cephalic presentation. heart tones measure 126 bpm. The placenta is fundal. The SRUTHI may be borderline low; however, the intern did not give any dedicated measurements. The cervix is closed and measures 5.5 cm in length. The four-chamber heart, outflow tracts, diaphragm, and lower spine have a normal sonographic appearance. The kidneys, bladder, brain, three-vessel cord, upper spine, and cord insertion are suboptimally visualized due to position and advanced age. Biometrical measurements are as follows: Biparietal 8.82 cm, age 35 weeks 5 days. Head circumference 33.17 cm, age 37 weeks 6 days. Abdominal circumference 31.59 cm, age 35 weeks 4 days. Femur length 6.95 cm, age 35 weeks 5 days. Sonographic estimate age: 36 weeks 2 days. Sonographic estimated date of delivery: 03/07/2022. Estimated Weight: 2774 gm (+/- 405 gm). LMP percentile: 63%. heart rate: 126 beats per minute. number: 1 of 1. IMPRESSION: 1. Single live intrauterine gestation measuring 36 weeks 2 days with an estimated due date of 03/07/2022. These are within range with clinical dates. Recommend continued followup as indicated. 2. The kidneys, bladder, brain, three-vessel cord, upper spine, and cord insertion are suboptimally visualized due to position and advanced age. The remainder of the anatomy is visualized and is unremarkable. Recommend continued followup as indicated. 3. Visually borderline low amniotic fluid. Recommend continued followup with dedicated measurements of the amniotic fluid. Dictated by: Dictated on workstation # [id number]
--- NOTE | 2022-02-09 13:21 | Diagnostic Imaging Report ---
INDICATION: Late care Biophysical profile The biophysical profile score is 8 out of 8. heart rate was 126. Presentation cephalic. SRUTHI is 12. IMPRESSION: biophysical profile score is 8 out of 8 Dictated by: Dictated on workstation # [id number]
== END ==
LOC: RAD 11:30
PROVIDERS: ATTEND Nurse Practitioner Women's Health
DX: O09.33 Supervision of pregnancy with insufficient antenatal care, third trimester (principal); Z3A.36 36 weeks gestation of pregnancy
CPT/HCPCS: 76805; 76819